=== PATIENT | female | born 1960 | race Caucasian/White ===

== ENCOUNTER 2020-05-03 15:48 | Emergency (ER) | payer OTHER ==
[~2020-05-03] VITALS: Ht 160 cm; Wt 68.0 kg
[~2020-05-03 15:48] MED LIST: KETO10TA2 PO; SYNTHROID50 MCG PO
[2020-05-03] MEDS ORDERED: METFORMIN HCL500 M4 PO (16:08)
[2020-05-03] MEDS ORDERED: ROSUVASTATIN CA10 MG PO (16:08)
[2020-05-03] MEDS ORDERED: SYNTHROID112 MCG PO (16:08)
== END 2020-05-03 23:41 | disposition home or self-care (01) ==
LOC: ER 15:48
DX: K57.32 Diverticulitis of large intestine without perforation or abscess without bleeding (principal); R10.32 Left lower quadrant pain; Z03.818 Encounter for observation for suspected exposure to other biological agents ruled out